=== PATIENT | female | born 1975 | race Caucasian/White ===

== ENCOUNTER → 2018-06-02 | Day surgery (SDC) | payer OTHER ==
[~2018-06-02] MED LIST: BUPIVACAINE HCL 0.5 % INJ/PF 30 ML SDV ONE; LIDOCAINE 1% INJ-PF (10 MG/ML) 30 ML SDV ONE; LIDOCAINE 2% INJ (20 MG/ML) 20 ML MDV ONE; METHYLPREDNISOLONE ACETATE INJ 40 MG/1 ML ML ONE
--- NOTE | 2018-06-02 14:45 | Operative Report ---
PREOPERATIVE DIAGNOSIS: Lumbar Spondylosis POSTOPERATIVE DIAGNOSIS: Lumbar Spondylosis PROCEDURE: Radiofrequency Ablation of medial branches - RT L3 L4 L5 DATE OF PROCEDURE: [06/02/18 ] ANESTHESIA: [local] COMPLICATIONS: [none] CONSENT: A full description of the procedure was provided including benefits as well as possible complications. All questions were answered and informed consent was given and signed. ASA guidelines for fasting were verified prior to sedation. PROCEDURE IN DETAIL The patient was brought into the fluoroscopy suite and positioned into the prone position on the fluoroscopy table and allowed to adjust to a position of comfort. A grounding pad was placed on the [RIGHT] thigh. The lumbar region was widely prepped with a chloraprep solution, allowed to air dry and draped in standard sterile surgical fashion. Local anesthesia was provided by [1] mL of [1]% [lidocaine]delivered with a 25 g needle. A 17g 100mm radiofrequency introducer needle was placed to the planned anatomic targets guided with intermittent fluoroscopy with a perpendicular approach to terminally place at the junction of the superior articular process and the transverse process of the [RIGHT] L4 L5 and the base of the sacral ala on the [right] for the L5 medial branch nerve. The stylets were removed and radiofrequency probes with a 4mm active tip were then inserted. Needle tip position of the probes was verified in the AP, oblique, and lateral views. At each site, the medial branch nerve was stimulated at 2 Hz to a maximum 1-2 volts determined to finalize safe needle and electrode placement. The patient was awake and responsive during this portion of the procedure. Each target was anesthetized with 1-2 mL of [2]% [lidocaine] for anesthesia for lesioning and then each target was lesioned at 80 degrees Celsius for 2 minutes and 30 seconds. Tissue impedences were noted to be between 250 and 500 Ohms. A solution of depomedrol and sensorcaine was then injected at each site. Electrodes and needles were then removed and bandages placed over the needle placement sites, the patient then returned to the supine position on a stretcher and transported to the recovery room without hemodynamic, neurologic, or allergic reactions. Fluoroscopic images were printed for hard copy recording and digitally archived. POST PROCEDURE EVALUATION: The patient was comfortable in the recovery room. The patient is aware that pain may worsen before remitting and 4 6 weeks may be required prior to the onset of pain relief. IMPRESSION: 1. Technically successful [RIGHT] L3 L4 L5 medial branch radiofrequency neurotomy for denervation on the [RIGHT] without complication. 2. RTC in [6] weeks. 3. Estimated Blood Loss: 5 cc 4. Fluoroscopy time: [see nursing record] seconds
== END ==
LOC: RAD 13:30
PROVIDERS: ATTEND Student in an Organized Health Care Education/Training Program
DX: M47.816 Spondylosis without myelopathy or radiculopathy, lumbar region (principal)
CPT/HCPCS: 64636; 64635; J3490 ×3; J1020